=== PATIENT | female | born 1970 | race African-American/Black ===

== ENCOUNTER 2017-08-01 17:29 | Emergency (ER) | payer MEDICAID ==
[~2017-08-01] VITALS: Ht 165.1 cm; Wt 89.0 kg
[~2017-08-01 17:29] MED LIST: NO MEDS
[2017-08-01] MEDS ORDERED: CLINDAMYCIN 600 MG in DEXTROSE 5% WATER 50 ML IV ONE (23:15)
[2017-08-01] MEDS ORDERED: SODIUM CHLORIDE 0.9% 1,000 ML IV ONE (23:15)
[2017-08-02 01:20] VITALS: BP 125/84
== END 2017-08-02 01:48 | disposition home or self-care (01) ==
LOC: ER 18:37
DX: L03.115 Cellulitis of right lower limb (principal)
CPT/HCPCS: 93971; 96365; 96366; 99285; J3490; J7030; Z7610; J7060